=== PATIENT | male | born 1965 | race Caucasian/White ===

== ENCOUNTER 2017-02-08 12:28 | Emergency (ER) | payer MEDICAID ==
[~2017-02-08] VITALS: Ht 160 cm; Wt 49.9 kg
[~2017-02-08 12:28] MED LIST: Acetaminophen/Hydrocodone Bi PO; COLACE100 M1 PO
[2017-02-08 12:30] VITALS: BP 117/74
--- NOTE | 2017-02-08 14:09 | NUR ---
PATIENT PRESENTS TO ED FOR PICC LINE REMOVAL . PT STATES HE HAD THE PICC LINE INSERTED 6 WEEKS AGO FOR ABX TX. DENIES N/V/D; SKIN IS PINK/WARM/DRY; AAOX4 WITH EVEN AND STEADY GAIT; LUNGS CLEAR BL; HR EVEN AND REGULAR; PT DENIES ANY FEVER, CP, SOB, OR COUGH AT THIS TIME; PATIENT STATES PAIN OF 0/10 AT THIS TIME; VSS; PATIENT POSITIONED FOR COMFORT; HOB ELEVATED; BEDRAILS UP X2; BED DOWN. ER MD MADE AWARE OF PT STATUS.
--- NOTE | 2017-02-08 15:00 | NUR ---
Patient being evaluated by physician at bedside.
[2017-02-08 15:20] VITALS: BP 110/74
--- NOTE | 2017-02-08 15:20 | NUR ---
Patient discharged with v/s stable. Written and verbal after care instructions given and explained. Patient verbalized understanding. Wheel Chair Assisted by caregiver. All questions addressed prior to discharge. Advised to follow up with PMD.
== END 2017-02-08 15:20 | disposition home or self-care (01) ==
LOC: MED 12:28
DX: Z46.6 Encounter for fitting and adjustment of urinary device (principal); Z45.2 Encounter for adjustment and management of vascular access device; Z85.46 Personal history of malignant neoplasm of prostate; Z98.890 Other specified postprocedural states

== ENCOUNTER 2017-08-30 12:49 | Emergency (ER) | payer MEDICAID ==
[~2017-08-30] VITALS: Ht 162.6 cm; Wt 56.2 kg
[~2017-08-30 12:49] MED LIST changes: -COLACE100 M1 PO; +DOCU-299 PO
[2017-08-30 13:27] VITALS: BP 152/84
--- NOTE | 2017-08-30 14:18 | NUR ---
Patient wheelchair assisted to bed 7.
--- NOTE | 2017-08-30 14:29 | NUR ---
PATIENT BIB DAUGHTER WITH C/O LT LOWER ABDOMINAL PAIN X 2 DAYS; NO N/V/D;HX OF PROSTATE CA SURGERY 07/2016, BACK SURGERY FOR CA 10/2016.PT HAD A CHEMO LAST MONTH;DENIES N/V/D; SKIN IS PINK/WARM/DRY; AAOX4 WITH EVEN AND STEADY GAIT; LUNGS CLEAR BL; HR EVEN AND REGULAR; PT DENIES ANY FEVER, CP, SOB, OR COUGH AT THIS TIME; PATIENT STATES PAIN OF 7/10 AT THIS TIME;PATIENT POSITIONED FOR COMFORT; HOB ELEVATED; BEDRAILS UP X2; BED DOWN. ALL MONITORS IN PLACED;ER MD MADE AWARE OF PT STATUS.
[2017-08-30] MEDS ORDERED: NACL 0.9% 500 ML IV ONE (15:10)
[2017-08-30] MEDS ORDERED: HYDROmorphone 1 MG/ML AMP IVP ONE (15:10)
[2017-08-30 15:19] LABS: BASOPHILS # (AUTO) 0.1 K/uL (0.00-0.22); BASOPHILS % (AUTO) 0.9 % (0.0-2.0); EOSINOPHILS # (AUTO) 0.1 K/uL (0-0.4); EOSINOPHILS % (AUTO) 1.3 % (0.0-4.0); HEMATOCRIT 25.7 % (36-52); HEMOGLOBIN 8.3 g/dL (12.0-18.0); LYMPHOCYTES % (AUTO) 25.5 % (20.5-51.1); MEAN CORPUSCULAR HEMOGLOBIN 25 pg (27-31); MEAN CORPUSCULAR HGB CONC 33 g/dL (33-37); MEAN CORPUSCULAR VOLUME 76 fL (80-94); MONOCYTES # (AUTO) 0.5 K/uL (0.8-1.0); NEUTROPHILS # (AUTO) 5.1 K/uL (1.8-7.7); NEUTROPHILS % (AUTO) 65.3 % (42.2-75.2); PLATELET COUNT (AUTO) 493 K/uL (140-450); RED BLOOD CELL COUNT(AUTO) 3.37 MIL/uL (4.20-6.10); RED CELL DISTRIBUTION WIDTH 18.3 % (11.6-13.7); WHITE BLOOD COUNT (AUTO) 7.8 K/uL (4.8-10.8)
[2017-08-30 15:32] LABS: ANION GAP 10.1 (8-16); CARBON DIOXIDE 28.8 mmol/L (21-32); CREATININE 0.7 mg/dL (0.7-1.3); POTASSIUM 3.9 mmol/L (3.5-5.1)
[2017-08-30 15:38] LABS: ALBUMIN 2.5 g/dL (3.4-5.0); TOTAL BILIRUBIN 0.4 mg/dL (0.0-1.0)
--- NOTE | 2017-08-30 15:53 | NUR ---
WENT TO CT SCAN ACCOMPANIED BY TECH.
--- NOTE | 2017-08-30 16:05 | NUR ---
BACK FROM CT SCAN ACCOMPANIED BY SARAH.
--- NOTE | 2017-08-30 16:54 | NUR ---
PT RESTING ON BED;NO ACUTE DISTRESS NOTED;WILL CONTINUE TO MONITOR PT.
--- NOTE | 2017-08-30 17:19 | NUR ---
Patient discharged with v/s stable. Written and verbal after care instructions given and explained. Patient alert, oriented and verbalized understanding of instructions. Wheel Chair Assisted with steady gait. All questions addressed prior to discharge. ID band removed. Patient advised to follow up with PMD. Rx of COLACE,BISACODYL AND NORCO given. Patient educated on indication of medication including possible reaction and side effects. Opportunity to ask questions provided and answered.
[2017-08-30 17:20] VITALS: BP 156/84
== END 2017-08-30 17:19 | disposition home or self-care (01) ==
LOC: MED 12:49
DX: K59.00 Constipation, unspecified (principal); C61 Malignant neoplasm of prostate; C79.51 Secondary malignant neoplasm of bone
CPT/HCPCS: 36415; 74176; 80053; 83690; 85025; 96361; 96374; 99285; J1170; J7030

== ENCOUNTER 2018-06-23 11:52 | Emergency (ER) | payer MEDICAID ==
[~2018-06-23] VITALS: Ht 157.5 cm; Wt 51.3 kg
[2018-06-23 12:20] VITALS: BP 136/46
[2018-06-23 14:53] LABS: APPEARANCE,URINE CLEAR (CLEAR); BILIRUBIN,URINE NEGATIVE (NEGATIVE); BLOOD, URINE 1+ (NEGATIVE); LEUKOCYTE ESTERASE ,URINE NEGATIVE (NEGATIVE); NITRITE, URINE NEGATIVE (NEGATIVE); PH,URINE 5.5 (5.0-9.0); UGLUCOSE NEGATIVE (NEGATIVE)
[2018-06-23 15:19] LABS: COLOR,URINE STRAW (YELLOW)
[2018-06-23 15:20] LABS: RBC,URINE 0-5 (RARE) /HPF (0-5); WBC,URINE NONE SEEN /HPF (0-5)
[2018-06-23 16:17] VITALS: BP 133/75
== END 2018-06-23 16:24 | disposition home or self-care (01) ==
LOC: MED 11:52
DX: C61 Malignant neoplasm of prostate (principal); R33.8 Other retention of urine
CPT/HCPCS: 51702; 81001; 82948; 99284

== ENCOUNTER 2019-01-21 09:03 | Emergency (ER) | payer MEDICAID ==
[~2019-01-21] VITALS: Ht 160 cm; Wt 51.3 kg
[2019-01-21 09:14] VITALS: BP 118/74
--- NOTE | 2019-01-21 09:21 | NUR ---
Patient transferred to bed 9 via wheelchair by nurse. RN evaluating patient at bedside.
--- NOTE | 2019-01-21 09:28 | NUR ---
C/O ADB PAIN X 1 DAY 06/06 ACHING. PT HAS INDWELLING TAVAREZ CATHETER AND HAS NOT HAD URINE SINCE YESTERDAY. ABDOMEN IS FIRM, TENDER TO TOUCH. DENIES FEVER, N/V/D; SKIN IS PINK/WARM/DRY; AAOX4, VSS; PATIENT POSITIONED FOR COMFORT; HOB ELEVATED; BEDRAILS UP X1; BED DOWN. ER MD MADE AWARE OF PT STATUS.
--- NOTE | 2019-01-21 10:10 | NUR ---
PT STATES PAIN IS MILD AT THIS TIME.
[2019-01-21 11:14] LABS: APPEARANCE,URINE SL CLOUDY (CLEAR); BILIRUBIN,URINE NEGATIVE (NEGATIVE); BLOOD, URINE 3+ (NEGATIVE); COLOR,URINE YELLOW (YELLOW); LEUKOCYTE ESTERASE ,URINE 3+ (NEGATIVE); NITRITE, URINE POSITIVE (NEGATIVE); UGLUCOSE NEGATIVE (NEGATIVE)
[2019-01-21 11:21] LABS: RBC,URINE 11-20 (MOD) /HPF (0-5); WBC,URINE 20-60 /HPF (0-5)
[2019-01-21] MEDS ORDERED: cefTRIAXone 1,000 MG in LIDOCAINE MPF 1% - 5 mL VIAL 2.1 ML IM ONE (11:35)
--- NOTE | 2019-01-21 11:36 | NUR ---
Dr. Beth re-evaluating patient at bedside.
--- NOTE | 2019-01-21 11:36 | NUR ---
ERMD AT BEDSIDE
--- NOTE | 2019-01-21 12:25 | NUR ---
LEG BAG PROVIDED PER ORDER.
[2019-01-21 12:29] VITALS: BP 120/78
--- NOTE | 2019-01-21 12:29 | NUR ---
Patient discharged with v/s stable. Written and verbal after care instructions given and explained. Patient alert, oriented and verbalized understanding of instructions. Wheel Chair Assisted with by caregiver. All questions addressed prior to discharge. ID band removed. Patient advised to follow up with PMD. Rx of BACTRIM given. Patient educated on indication of medication including possible reaction and side effects. Opportunity to ask questions provided and answered.
== END 2019-01-21 09:14 | disposition home or self-care (01) ==
LOC: MED 09:03
DX: N39.0 Urinary tract infection, site not specified (principal); R33.9 Retention of urine, unspecified; Z85.46 Personal history of malignant neoplasm of prostate; Z79.891 Long term (current) use of opiate analgesic; Z79.899 Other long term (current) drug therapy
CPT/HCPCS: 51702; 81001; 87086; 96372; 99284; J0696; J2001; 87186

== ENCOUNTER 2019-03-10 11:53 | Emergency (ER) | payer MEDICAID ==
[~2019-03-10] VITALS: Ht 160 cm; Wt 51.3 kg
[2019-03-10 12:02] VITALS: BP 121/79
--- NOTE | 2019-03-10 12:20 | NUR ---
C/O DECREASED DRAINAGE FROM URINARY CATHETER NOTICED THIS MORNING. DENIES N/V/D/FEVER/PAIN. URINE FROM CATHETER IS YELLOW AND CLOUDY, APPROX 50ML.
--- NOTE | 2019-03-10 12:41 | NUR ---
urine collected and sent to lab
--- NOTE | 2019-03-10 12:57 | NUR ---
PT BACK FROM CT VIA BED WITH TECH
[2019-03-10 12:58] LABS: BASOPHILS % (AUTO) 0.4 % (0.0-2.0); EOSINOPHILS % (AUTO) 0.3 % (0.0-4.0); HEMATOCRIT 30.4 % (36-52); HEMOGLOBIN 10.1 g/dL (12.0-18.0); LYMPHOCYTES # (AUTO) 1.1 K/uL (2.0-11.5); MEAN CORPUSCULAR HEMOGLOBIN 26 pg (27-31); MEAN CORPUSCULAR HGB CONC 33 g/dL (33-37); MEAN CORPUSCULAR VOLUME 77.4 fL (80-94); MONOCYTES # (AUTO) 0.5 K/uL (0.8-1.0); MONOCYTES % (AUTO) 6.2 % (1.7-9.3); NEUTROPHILS % (AUTO) 80.1 % (42.2-75.2); PLATELET COUNT (AUTO) 503 K/uL (140-450); RED BLOOD CELL COUNT(AUTO) 3.93 MIL/uL (4.20-6.10); RED CELL DISTRIBUTION WIDTH 19.2 % (11.6-13.7); WHITE BLOOD COUNT (AUTO) 8.7 K/uL (4.8-10.8)
[2019-03-10 13:09] LABS: ANION GAP 16.1 (8-16); POTASSIUM 4.1 mmol/L (3.5-5.1)
[2019-03-10 13:13] LABS: ALBUMIN 2.4 g/dL (3.4-5.0); TOTAL BILIRUBIN 0.8 mg/dL (0.0-1.0)
[2019-03-10 13:20] LABS: APPEARANCE,URINE HAZY (CLEAR); BILIRUBIN,URINE NEGATIVE (NEGATIVE); BLOOD, URINE 1+ (NEGATIVE); COLOR,URINE YELLOW (YELLOW); LEUKOCYTE ESTERASE ,URINE 3+ (NEGATIVE); NITRITE, URINE NEGATIVE (NEGATIVE); UGLUCOSE NEGATIVE (NEGATIVE)
[2019-03-10] MEDS ORDERED: NACL 0.9% 1,000 ML IV ONE (13:25)
--- NOTE | 2019-03-10 13:26 | NUR ---
Rodrigo middleton in EDM - 03/10/19 at 1327 by MED1 pt is refusing all care at this time, states he came to the ER only to refil his prescription medications. Dr. Beth aware and will go to see the pt.
[2019-03-10 13:51] LABS: RBC,URINE 0-5 /HPF (0-5)
--- NOTE | 2019-03-10 14:00 | NUR ---
# 14 FR Song catheter with 10 ml utilizing sterile technique. Immediate return of 50 ML ml YELLOW, CLOUDY urine noted. Bedside drainage bag placed below level of bladder. Pt tolerated procedure WELL.
--- NOTE | 2019-03-10 14:50 | NUR ---
Patient appears to be resting in bed. Vital Signs within normal limits. Respirations even and unlabored.
[2019-03-10 15:20] VITALS: BP 119/68
--- NOTE | 2019-03-10 15:20 | NUR ---
Patient discharged with v/s stable. Written and verbal after care instructions given and explained. Patient verbalized understanding. Wheel Chair Assisted by daughter. All questions addressed prior to discharge. Advised to follow up with PMD. pt d/c with 14f rivera catheter. IV removed and catheter intact.
== END 2019-03-10 15:20 | disposition home or self-care (01) ==
LOC: MED 11:53
DX: E86.0 Dehydration (principal); R10.30 Lower abdominal pain, unspecified; R30.0 Dysuria; Z85.46 Personal history of malignant neoplasm of prostate; Z79.899 Other long term (current) drug therapy
CPT/HCPCS: 36415; 51702; 74176; 80053; 81001; 85025; 87086; 96360; 99284; J7030

== ENCOUNTER 2019-04-15 20:32 | Emergency (ER) | payer MEDICAID ==
[~2019-04-15] VITALS: Ht 160 cm; Wt 51.3 kg
[2019-04-15 20:44] VITALS: BP 104/72
--- NOTE | 2019-04-15 20:46 | NUR ---
TO LOBBY A/W BED VIA W/C
--- NOTE | 2019-04-15 21:27 | NUR ---
PT TAKEN TO BED 3
--- NOTE | 2019-04-15 21:45 | NUR ---
PT TO ED WITH SON VIA W/C FOR C/O "CLOGGED CATHETER" PER PT. INDWELLING URINARY CATH WITH LEG BAG IN PLACE UPON ARRIVAL DUE TO URINARY INCONTINENCE D/T PROSTATE CA. TAVAREZ APPEARS UNCLEAN WITH FOUL ODOR AND NO DRAINAGE. OBVIOUS BLADDER DISTENTION NOTED. PT IN BED, PENDING MD ESCALERA.
--- NOTE | 2019-04-15 21:59 | NUR ---
Dr. Sigala examining patient.
--- NOTE | 2019-04-15 22:15 | NUR ---
# 14 FR Song catheter with 10 ml utilizing sterile technique. Immediate return of 1000 ml YELLOW urine noted. Bedside drainage bag placed below level of bladder. Urine sample collected and sent to lab. Pt tolerated procedure WELL.
--- NOTE | 2019-04-15 23:08 | NUR ---
PT REPORTING RELIEF OF PAIN POST CATHETER INSERTION. BLADDER DISTENTION SIGNIFICANTLY DECREASED.
[2019-04-15 23:32] VITALS: BP 106/73
--- NOTE | 2019-04-15 23:32 | NUR ---
Patient discharged with v/s stable. Written and verbal after care instructions given and explained. Patient alert, oriented and verbalized understanding of instructions. Wheel Chair Assisted with by caregiver. All questions addressed prior to discharge. ID band removed. Patient advised to follow up with PMD. Rx of CIPRO given. Patient educated on indication of medication including possible reaction and side effects. Opportunity to ask questions provided and answered.
== END 2019-04-15 23:32 | disposition home or self-care (01) ==
LOC: MED 20:32
DX: T83.098A Other mechanical complication of other urinary catheter, initial encounter (principal); Z85.46 Personal history of malignant neoplasm of prostate; Z79.899 Other long term (current) drug therapy; Y84.9 Medical procedure, unspecified as the cause of abnormal reaction of the patient, or of later complication, without mention of misadventure at the time of the procedure
CPT/HCPCS: 51702; 99284; C1758

== ENCOUNTER 2019-04-30 00:43 | Emergency (ER) | payer MEDICAID ==
[~2019-04-30] VITALS: Ht 160 cm; Wt 45.4 kg
[~2019-04-30 00:43] MED LIST changes: -DOCU-299 PO
[2019-04-30 00:56] VITALS: BP 130/90
--- NOTE | 2019-04-30 00:56 | NUR ---
PT TAKEN TO BED 4
--- NOTE | 2019-04-30 01:00 | NUR ---
53 y/o m presents w/c/o "clogged urinary cather." pt feels like his urine is being reatained. no other complaints. rr even/unlabored. gcs 15.
--- NOTE | 2019-04-30 01:10 | NUR ---
per dr. cormier new rivera catheter to be placed
--- NOTE | 2019-04-30 01:16 | NUR ---
16 fr rivera catheter placed using sterile technique. pt tolerated well. 300ml of cloudy urine noted.
[2019-04-30 01:30] VITALS: BP 125/89
--- NOTE | 2019-04-30 01:44 | NUR ---
Patient discharged by dr. cormier with v/s stable. Written and verbal after care instructions given and explained. Patient verbalized understanding. Wheel Chair Assisted with to car. All questions addressed prior to discharge. Advised to follow up with PMD.
== END 2019-04-30 01:44 | disposition home or self-care (01) ==
LOC: MED 00:43
DX: T83.018A Breakdown (mechanical) of other urinary catheter, initial encounter (principal); Z85.46 Personal history of malignant neoplasm of prostate; Z79.899 Other long term (current) drug therapy; Y84.6 Urinary catheterization as the cause of abnormal reaction of the patient, or of later complication, without mention of misadventure at the time of the procedure
CPT/HCPCS: 51702; 99284; C1758

== ENCOUNTER 2019-07-29 12:49 | Inpatient (IN) | payer MEDICAID ==
[~2019-07-29] VITALS: Ht 160 cm; Wt 51.7 kg
[2019-07-29 13:00] VITALS: BP 109/63
--- NOTE | 2019-07-29 13:20 | NUR ---
PER ER NAM SUÁREZ TO REMOVE TAVAREZ CATHETER, AND COLLECT URINE SAMPLE WHEN INSERTING TAVAREZ REPLACEMENT.
--- NOTE | 2019-07-29 13:20 | NUR ---
54/M BIB DAUGHTER, WITH INITIAL C/O "BALL" ON LOWER BACK, X2 WEEKS. UPON INSPECTION, LARGE STAGE 4 SACRAL ULCER NOTED. ALSO C/O DARK URINE THAT HAS SINCE RESOLVED, MILDLY CLOUDY IRVIN URINE NOTED, TAVAREZ CATH WITH LEG BAG IN PLACE BUT BALLOON NOT INFLATED, TAVAREZ CATH REMOVED. PT DENIES FEVER, N/V/D, CONSTIPATION OR DYSURIA. PT AWAKE AND ALERT, WHEELCHAIR-BOUND, SKIN CACHETIC, NORMAL COLOR, WARM AND DRY, RR EVEN AND UNLABORED. HX PROSTATE CA WITH BONE METASTASIS RX CHEMO (HAVEN'T TAKEN IN 2 WEEKS AGO)
[2019-07-29] MEDS ORDERED: NACL 0.9% 500 ML IV SCH (13:52)
--- NOTE | 2019-07-29 14:10 | NUR ---
# 14 FR Urinary catheter inserted utilizing sterile technique. Immediate return of 100 ml CLEAR YELLOW urine noted. Urine sample collected and sent to lab. Pt tolerated procedure WELL.
[2019-07-29 14:20] LABS: BASOPHILS % (AUTO) 0.4 % (0.0-2.0); EOSINOPHILS % (AUTO) 0.3 % (0.0-4.0); LYMPHOCYTES # (AUTO) 1.8 K/uL (2.0-11.5); LYMPHOCYTES % (AUTO) 15.3 % (20.5-51.1); MEAN CORPUSCULAR HEMOGLOBIN 24 pg (27-31); MEAN CORPUSCULAR HGB CONC 33 g/dL (33-37); MEAN CORPUSCULAR VOLUME 72.7 fL (80-94); MONOCYTES # (AUTO) 0.7 K/uL (0.8-1.0); MONOCYTES % (AUTO) 5.6 % (1.7-9.3); NEUTROPHILS # (AUTO) 9.1 K/uL (1.8-7.7); NEUTROPHILS % (AUTO) 78.4 % (42.2-75.2); PLATELET COUNT (AUTO) 602 K/uL (140-450); RED CELL DISTRIBUTION WIDTH 17.7 % (11.6-13.7); WHITE BLOOD COUNT (AUTO) 11.6 K/uL (4.8-10.8)
--- NOTE | 2019-07-29 14:22 | NUR ---
Patient noted to have existing wounds upon arrival to ER. Photos taken of wound and placed in chart. Wound covered with dressing. Physician informed.
[2019-07-29 14:26] LABS: HEMATOCRIT 18.2 % (36-52); HEMOGLOBIN 5.9 g/dL (12.0-18.0)
[2019-07-29 14:32] LABS: PROTHROMBIN TIME 10.2 secs (10.8-13.4)
[2019-07-29 14:36] LABS: ALBUMIN 1.6 g/dL (3.4-5.0); ANION GAP 14.6 (8-16); CARBON DIOXIDE 20.2 mmol/L (21-32); CREATININE 1.2 mg/dL (0.7-1.3); TOTAL BILIRUBIN 0.8 mg/dL (0.0-1.0)
[2019-07-29 14:39] LABS: POTASSIUM 2.8 mmol/L (3.5-5.1)
[2019-07-29 14:58] LABS: APPEARANCE,URINE HAZY (CLEAR); BILIRUBIN,URINE NEGATIVE (NEGATIVE); BLOOD, URINE 3+ (NEGATIVE); COLOR,URINE YELLOW (YELLOW); LEUKOCYTE ESTERASE ,URINE 1+ (NEGATIVE); NITRITE, URINE NEGATIVE (NEGATIVE); UGLUCOSE NEGATIVE (NEGATIVE)
[2019-07-29] MEDS ORDERED: POTASSIUM CHLORIDE 10 MEQ TABER PO ONE (15:00)
--- NOTE | 2019-07-29 15:06 | NUR ---
RADIOLOGY AT BEDSIDE
[2019-07-29] MEDS ORDERED: PIPERACILLIN/TAZOBACTAM 3.375 GM in DEXTROSE 5% 50 ML IV ONE (15:10)
[2019-07-29] MEDS ORDERED: PIPERACILLIN/TAZOBACTAM 3.375 GM VIAL IV ONE (15:14)
[2019-07-29 15:22] LABS: RBC,URINE 20-50 /HPF (0-5); URINE AMORPHOUS URATE 2+ /HPF (None Seen)
[2019-07-29] MEDS ORDERED: LEVOFLOXACIN 500 MG/D5W PREMIX 100 ML IV ONE (15:30)
[2019-07-29] MEDS ORDERED: NACL 0.9% 1,000 ML IV SCH (16:01)
[2019-07-29] MEDS ORDERED: ACETAMINOPHEN 325 MG TAB PO PRN (16:05)
[2019-07-29] MEDS ORDERED: ONDANSETRON 4 MG/2 ML VIAL IVP PRN (16:05)
[2019-07-29] MEDS ORDERED: [UNRECOGNIZED DRUG - CODE] PO ×2 (16:42→16:45)
--- NOTE | 2019-07-29 17:00 | NUR ---
PATIENT ARRIVED FROM ER. REPORT RECEIVED. PATIENT VS STABLE, ALERT ORIENTED X 4. DAUGHTER AT BEDSIDE. PATIENT ORIENTED TO ROOM AND UNIT. CALL LIGHT WITHIN REACH. MRSA SWAB DONE. RIGHT AC IV INTACT AND PATENT. TAVAREZ CATHETER 16FR PLACED ORDERED. TOLERATED WELL. PRESSURE ULCER TO SACRAL AREA NOTED. DRESSING INTACT. PHOTOS TAKEN IN ER.
--- NOTE | 2019-07-29 17:08 | NUR ---
Patient will be admitted to care of [facility]. Admited to TELE. Will go to room 105B. Belongings list completed. Report to SCOTT MORRISON.
[2019-07-29 17:27] LABS: BARBITURATE, URINE NEG. ng/ml (NEG <=200); BENZODIAZEPINE, URINE NEG. ng/mL (NEG <=200); CANNABINOID, URINE NEG. ng/mL (NEG <=50); COCAINE, URINE NEG. ng/mL (NEG <=300); OPIATE, URINE NEG. ng/mL (NEG <=2000); PHENCYCLIDINE SCREEN,URINE NEG. ng/mL (NEG <=25)
[2019-07-29 17:36] LABS: FREE T4 (FREE THYROXINE) 1.19 ng/dL (0.76-1.46); MAGNESIUM 1.8 mg/dL (1.8-2.4); PHOSPHORUS 2.9 mg/dL (2.5-4.9); THYROID STIMULATING HORMONE 2.35 uIU/mL (0.34-3.74)
[2019-07-29] MEDS ORDERED: POTASSIUM CHLORIDE 40 MEQ, LIDOCAINE MPF 1% 25 MG in NACL 0.9% 250 ML IV ONE (18:00)
[2019-07-29 18:20] VITALS: BP 97/61
--- NOTE | 2019-07-29 18:30 | NUR ---
PT SITTING UP EATING DINNER, TINY WELL.
[2019-07-29] MEDS ORDERED: KCL 20 MEQ/WATER INJ PREMIX 200 ML IV ONE (18:39)
[2019-07-29] MEDS: NACL 0.9% 1,000 ML IV SCH (18:43)
[2019-07-29] MEDS: HYDROcodone/APAP 7.5/325 MG 1 TAB PO PRN (18:43)
--- NOTE | 2019-07-29 19:25 | NUR ---
RECEIVED BEDSIDE REPORT FROM DAY SHIFT NURSE. PATIENT IS AWAKE, ALERT,AND COOPERATIVE. RESPIRATION EVEN UNLABORED ON ROOM AIR. NO DISTRESS NOTED. SKIN IS WARM AND DRY. SACRAL ULCER NOTED DRESSING DRY AND INTACT. DENIES PAIN. TAVAREZ CATHETER DRAINING YELLOW URINE. PLAN OF CARE WAS DISCUSSED. ALL SAFETY MEASURES IN PLACE. BED IS AT LOW POSITION. CALL LIGHT WITHIN REACH. WILL CONTINUE TO MONITOR.
--- NOTE | 2019-07-29 19:28 | NUR ---
REPORT GIVEN TO TRAINING DEVELOPMENT SPECIALIST NURSE, PT IN STABLE CONDITION.
[2019-07-29 20:00] VITALS: BP 92/59
--- NOTE | 2019-07-29 20:00 | NUR ---
INITIAL ASSESSMENT DONE. VITALS WERE TAKEN. PATIENT IN STABLE CONDITION. WILL CONTINUE TO MONITOR.
[2019-07-29 20:16] LABS: BASOPHILS % (AUTO) 0.1 % (0.0-2.0); EOSINOPHILS # (AUTO) 0.1 K/uL (0-0.4); EOSINOPHILS % (AUTO) 0.4 % (0.0-4.0); LYMPHOCYTES # (AUTO) 0.7 K/uL (2.0-11.5); LYMPHOCYTES % (AUTO) 5.9 % (20.5-51.1); MEAN CORPUSCULAR HEMOGLOBIN 24 pg (27-31); MEAN CORPUSCULAR HGB CONC 33 g/dL (33-37); MEAN CORPUSCULAR VOLUME 72.6 fL (80-94); MONOCYTES % (AUTO) 7.5 % (1.7-9.3); NEUTROPHILS # (AUTO) 10.9 K/uL (1.8-7.7); NEUTROPHILS % (AUTO) 86.1 % (42.2-75.2); PLATELET COUNT (AUTO) 515 K/uL (140-450); RED BLOOD CELL COUNT(AUTO) 2.16 MIL/uL (4.20-6.10); WHITE BLOOD COUNT (AUTO) 12.7 K/uL (4.8-10.8)
[2019-07-29 20:26] LABS: HEMATOCRIT 15.7 % (36-52); HEMOGLOBIN 5.1 g/dL (12.0-18.0)
[2019-07-29 20:39] LABS: ANION GAP 15.4 (8-16); CARBON DIOXIDE 19.8 mmol/L (21-32); CREATININE 1.1 mg/dL (0.7-1.3); POTASSIUM 4.2 mmol/L (3.5-5.1)
[2019-07-29] MEDS: DOCUSATE SODIUM 100 MG GELCAP PO SCH (21:11)
[2019-07-29] MEDS: metroNIDAZOLE 500 MG/NS PREMIX 100 ML IV SCH (21:11)
--- NOTE | 2019-07-29 21:45 | NUR ---
STARTED A NEW IV LINE ON THE LEFT WRIST 20G TOLERATING IT WELL. WILL CONTINUE TO MONITOR.
--- NOTE | 2019-07-29 21:46 | NUR ---
ALL SCHEDULED MEDS WERE GIVEN PER ORDER. WILL CONTINUE TO MONITOR.
--- NOTE | 2019-07-29 23:10 | NUR ---
BLOOD TRANSFUSION STARTED. WILL CONTINUE TO MONITOR. PATIENT
--- NOTE | 2019-07-29 23:30 | NUR ---
URINE 24HOUR COLLECTION STARTED
[2019-07-30] VITALS: BP 108/66
--- NOTE | 2019-07-30 | NUR ---
VITALS WERE TAKEN. PATIENT IN STABLE CONDITION. NO DISTRESS NOTED. BLOOD STILL INFUSING. WILL CONTINUE TO MONITOR.
--- NOTE | 2019-07-30 01:45 | NUR ---
FIRST UNIT OF BLOOD DONE. PATIENT TOLERATED IT WELL. NO ASE NOTED. WILL INFUSED 2ND UNIT OF BLOOD AFTER PRE VITALS. WILL CONTINUE TO MONITOR.
[2019-07-30] MEDS: NACL 0.9% 1,000 ML IV SCH ×3 (03:45→23:39)
[2019-07-30 04:00] VITALS: BP 106/63
--- NOTE | 2019-07-30 04:00 | NUR ---
VITALS WERE TAKEN. PATIENT IN STABLE CONDITION. BLOOD STILL INFUSING. WILL CONTINUE TO MONITOR.
--- NOTE | 2019-07-30 05:00 | NUR ---
BLOOD TRANSFUSION FINISHED. NO ASE NOTED. WILL CONTINUE TO MONITOR.
[2019-07-30] MEDS: metroNIDAZOLE 500 MG/NS PREMIX 100 ML IV SCH ×3 (05:01→21:07)
--- NOTE | 2019-07-30 07:11 | NUR ---
ENDORSED PATIENT TO DAY SHIFT NURSE. PATIENT IN STABLE CONDITION.
--- NOTE | 2019-07-30 07:15 | NUR ---
RECEIVED PT FROM FEATHER CUTTING MACHINE FEEDER NURSEMARIA M, PT IS AWAKE AND SEATED ON THE BED WITH SIDE RAILS UP AND CALL LIGHT WITHIN REACH, IV LINES ON THE RT AC G. 20 WITH IVF NS INFUSING AT 100ML/HR, AND LEFT WRIST G. 22 ON SALINE LOCK, PT ON ROOM AIR, NO SIGN OF DISTRESS NOTED. WILL MONITOR PT.
[2019-07-30 08:01] LABS: BASOPHILS % (AUTO) 0.3 % (0.0-2.0); EOSINOPHILS % (AUTO) 0.3 % (0.0-4.0); HEMATOCRIT 25.8 % (36-52); HEMOGLOBIN 8.4 g/dL (12.0-18.0); LYMPHOCYTES # (AUTO) 0.7 K/uL (2.0-11.5); MEAN CORPUSCULAR HEMOGLOBIN 24 pg (27-31); MEAN CORPUSCULAR HGB CONC 32 g/dL (33-37); MEAN CORPUSCULAR VOLUME 73.6 fL (80-94); MONOCYTES # (AUTO) 0.4 K/uL (0.8-1.0); MONOCYTES % (AUTO) 2.6 % (1.7-9.3); NEUTROPHILS # (AUTO) 13.4 K/uL (1.8-7.7); NEUTROPHILS % (AUTO) 91.8 % (42.2-75.2); PLATELET COUNT (AUTO) 524 K/uL (140-450); RED CELL DISTRIBUTION WIDTH 18.7 % (11.6-13.7); WHITE BLOOD COUNT (AUTO) 14.6 K/uL (4.8-10.8)
[2019-07-30 08:03] LABS: ANION GAP 17.3 (8-16); POTASSIUM 4.3 mmol/L (3.5-5.1)
[2019-07-30 08:05] VITALS: BP 108/70
[2019-07-30 08:07] LABS: CHOL/HDL RATIO 11.4 (1-4.5); MAGNESIUM 1.5 mg/dL (1.8-2.4); PHOSPHORUS 2.4 mg/dL (2.5-4.9)
--- NOTE | 2019-07-30 08:12 | NUR ---
PATIENT HAS BEEN SCREENED AND CATEGORIZED HIGH NUTRITION RISK. PATIENT WILL BE SEEN WITHIN 1-2 DAYS OF ADMISSION. 07/30/19-07/31/[address]
[2019-07-30] MEDS: DOCUSATE SODIUM 100 MG GELCAP PO SCH ×2 (08:59→21:07)
[2019-07-30] MEDS: FAMOTIDINE 20 MG TAB PO SCH (08:59)
--- NOTE | 2019-07-30 08:59 | NUR ---
PT IS AWAKE AND ORAL MEDICATIONS WERE GIVEN AND TOLERATED IT. WILL MONITOR PT.
[2019-07-30] MEDS ORDERED: ENZALUTAMIDE 40 MG PO SCH (09:00)
--- NOTE | 2019-07-30 10:30 | NUR ---
DR. OLSON CAME TO THE PT'S ROOM AND ASSESSED THE PT'S SACRAL PRESSURE WOUND, AND WAS REINFORCED WITH DRESSING.
[2019-07-30] MEDS: HYDROcodone/APAP 7.5/325 MG 1 TAB PO PRN ×3 (11:33→23:43)
--- NOTE | 2019-07-30 11:33 | NUR ---
PT IS AWAKE AND C/O PAIN RATE OF 6/10, ORAL PAIN MEDICATION WAS GIVEN And TOLERATED IT. WILL RE-ASSESS PAIN AND MONITOR PT
[2019-07-30 12:00] VITALS: BP 108/72
--- NOTE | 2019-07-30 12:40 | NUR ---
PT WAS GIVEN IVPB FLAGYL NOW, WILL MONITOR PT.
--- NOTE | 2019-07-30 13:24 | NUR ---
07/30/19 RD INITIAL ASSESSMENT COMPLETED PLEASE REFER TO NUTRITION ASSESSMENT UNDER CARE ACTIVITY FOR ESTIMATED NUTRITIONAL NEEDS. 1. CONTINUE REGULAR DIET TOLERATED 2. RECOMMEND ENSURE TID 3. RECOMMEND 500MG VITAMIC C BID 4. RECOMMEND MVI QD 5. RD TO FOLLOW-UP 2-3 DAYS, HIGH RISK [address]
[2019-07-30] MEDS ORDERED: ALBUTEROL SULFATE/IPRATROPIU 3 ML SOL IH PRN (16:20)
[2019-07-30] MEDS: FERROUS SULFATE 325 MG TABEC PO SCH (16:22)
--- NOTE | 2019-07-30 16:25 | NUR ---
PT IS AWAKE AND DAUGHTER ON THE BEDSIDE, ,ORAL AND IV MEDICATIONS WERE GIVEN AND TOLERATED IT. WILL MONITOR PT.
[2019-07-30] MEDS ORDERED: MAG SULF 2000 MG/WATER PREMIX 50 ML IV SCH (16:30)
[2019-07-30 16:58] LABS: BASOPHILS # (AUTO) 0.1 K/uL (0.00-0.22); BASOPHILS % (AUTO) 0.4 % (0.0-2.0); EOSINOPHILS # (AUTO) 0.1 K/uL (0-0.4); EOSINOPHILS % (AUTO) 0.5 % (0.0-4.0); HEMATOCRIT 24.9 % (36-52); HEMOGLOBIN 8.2 g/dL (12.0-18.0); LYMPHOCYTES # (AUTO) 1.1 K/uL (2.0-11.5); LYMPHOCYTES % (AUTO) 9.1 % (20.5-51.1); MEAN CORPUSCULAR HEMOGLOBIN 24 pg (27-31); MEAN CORPUSCULAR HGB CONC 33 g/dL (33-37); MEAN CORPUSCULAR VOLUME 72.6 fL (80-94); MONOCYTES # (AUTO) 0.6 K/uL (0.8-1.0); MONOCYTES % (AUTO) 4.6 % (1.7-9.3); NEUTROPHILS # (AUTO) 10.5 K/uL (1.8-7.7); NEUTROPHILS % (AUTO) 85.4 % (42.2-75.2); PLATELET COUNT (AUTO) 525 K/uL (140-450); RED BLOOD CELL COUNT(AUTO) 3.44 MIL/uL (4.20-6.10); RED CELL DISTRIBUTION WIDTH 18.4 % (11.6-13.7); WHITE BLOOD COUNT (AUTO) 12.3 K/uL (4.8-10.8)
[2019-07-30] MEDS ORDERED: SODIUM PHOS / POTASSIUM PHOS 1 PKT PDR PO SCH (17:00)
[2019-07-30] MEDS ORDERED: MULTIVITAMIN 1 TAB PO SCH (17:00)
[2019-07-30] MEDS ORDERED: SODIUM FERRIC GLUCONATE 125 MG in NACL 0.9% 100 ML IV SCH (17:00)
[2019-07-30] MEDS ORDERED: FOAM DRESSING TP SCH (17:00)
[2019-07-30 17:15] LABS: ANION GAP 15.7 (8-16); CARBON DIOXIDE 17.4 mmol/L (21-32); CREATININE 1.1 mg/dL (0.7-1.3); POTASSIUM 4.1 mmol/L (3.5-5.1)
--- NOTE | 2019-07-30 17:20 | NUR ---
PT WAS GIVEN MULTIVITAMIN NOW.
[2019-07-30 17:32] VITALS: BP 108/72
--- NOTE | 2019-07-30 18:58 | NUR ---
FERRLECIT WAS STARTED TO PT NOW.
[2019-07-30] MEDS: SODIUM FERRIC GLUCONATE 125 MG in NACL 0.9% 100 ML IV SCH (18:59)
--- NOTE | 2019-07-30 19:10 | NUR ---
ENDORSED PT TO NIGHT SIFT NURSE FOR CONTINUITY OF CARE.
--- NOTE | 2019-07-30 19:10 | NUR ---
RECEIVED BEDSIDE REPORT FROM DAY SHIFT NURSE. PATIENT IS AWAKE, ALERT, AND COOPERATIVE. RESPIRATION EVEN UNLABORED ON ROOM AIR. NO DISTRESS NOTED. SKIN IS WARM AND DRY. IV PATENT ANT INTACT. TAVAREZ CATHETER DRAINING YELLOW URINE. PLAN OF CARE WAS DISCUSSED. BED IS AT LOW POSITION. CALL LIGHT WITHIN REACH AND VERBALIZES ITS USE. WILL CONTINUE TO MONITOR.
[2019-07-30 20:00] VITALS: BP 96/58
--- NOTE | 2019-07-30 20:00 | NUR ---
INITIAL ASSESSMENT DONE. VITALS WERE TAKEN. PATIENT HAS A SACRAL PRESSURE ULCER. DRESSING DRY AND INTACT. WILL CONTINUE TO MONITOR.
[2019-07-30] MEDS: ALBUTEROL SULFATE/IPRATROPIU 3 ML SOL IH SCH (20:10)
--- NOTE | 2019-07-30 21:00 | NUR ---
ALL SCHEDULED MEDS WERE GIVEN PER ORDER. NO ASE NOTED. WILL CONTINUE TO MONITOR.
[2019-07-30] MEDS: ASCORBIC ACID 500 MG TAB PO SCH (21:07)
--- NOTE | 2019-07-30 22:34 | NUR ---
PATIENT WATCHING TV RESPIRATION EVEN UNLABORED ON ROOM AIR. NO DISTRESS NOTED. WILL CONTINUE TO MONITOR.
--- NOTE | 2019-07-30 23:46 | NUR ---
PATIENT COMPLAINED OF SACRAL AREA PAIN /. PRN PAIN MED ADMINISTERED PER ORDER. WILL CONTINUE TO MONITOR.
[2019-07-31] VITALS: BP 91/57
--- NOTE | 2019-07-31 | NUR ---
VITALS WERE TAKEN. PATIENT IN STABLE CONDITION. WILL CONTINUE TO MONITOR.
[2019-07-31] MEDS: NACL 0.9% 1,000 ML IV SCH ×2 (02:55→19:45)
--- NOTE | 2019-07-31 03:00 | NUR ---
CHECKED PATIENT. PATIENT SLEEPING RESPIRATION EVEN UNLABORED ON ROOM AIR. NO DISTRESS NOTED. WILL CONTINUE TO MONITOR.
[2019-07-31 04:00] VITALS: BP 113/70
--- NOTE | 2019-07-31 04:00 | NUR ---
VITALS WERE TAKEN. PATIENT IN STABLE CONDITION. WILL CONTINUE TO MONITOR.
[2019-07-31] MEDS: metroNIDAZOLE 500 MG/NS PREMIX 100 ML IV SCH ×3 (04:38→22:18)
[2019-07-31 07:00] LABS: BASOPHILS # (AUTO) 0.1 K/uL (0.00-0.22); BASOPHILS % (AUTO) 0.5 % (0.0-2.0); EOSINOPHILS # (AUTO) 0.1 K/uL (0-0.4); EOSINOPHILS % (AUTO) 1.6 % (0.0-4.0); HEMATOCRIT 23.5 % (36-52); HEMOGLOBIN 7.7 g/dL (12.0-18.0); LYMPHOCYTES # (AUTO) 1.1 K/uL (2.0-11.5); MEAN CORPUSCULAR HEMOGLOBIN 24 pg (27-31); MEAN CORPUSCULAR HGB CONC 33 g/dL (33-37); MEAN CORPUSCULAR VOLUME 73.7 fL (80-94); MONOCYTES # (AUTO) 0.5 K/uL (0.8-1.0); MONOCYTES % (AUTO) 5.2 % (1.7-9.3); NEUTROPHILS # (AUTO) 7.5 K/uL (1.8-7.7); NEUTROPHILS % (AUTO) 80.7 % (42.2-75.2); PLATELET COUNT (AUTO) 514 K/uL (140-450); RED BLOOD CELL COUNT(AUTO) 3.19 MIL/uL (4.20-6.10); RED CELL DISTRIBUTION WIDTH 18.5 % (11.6-13.7); WHITE BLOOD COUNT (AUTO) 9.3 K/uL (4.8-10.8)
[2019-07-31 07:16] LABS: ANION GAP 13.3 (8-16); CARBON DIOXIDE 19.5 mmol/L (21-32); POTASSIUM 3.8 mmol/L (3.5-5.1)
--- NOTE | 2019-07-31 07:20 | NUR ---
ENDORSED PATIENT TO DAY SHIFT NURSE. PATIENT IN STABLE CONDITION
[2019-07-31 07:23] LABS: MAGNESIUM 1.9 mg/dL (1.8-2.4)
[2019-07-31] MEDS: ALBUTEROL SULFATE/IPRATROPIU 3 ML SOL IH SCH ×3 (07:26→20:15)
--- NOTE | 2019-07-31 07:28 | NUR ---
RECEIVED PT FORM CUTTER V GROOVE NURSE, KALINA, PT IS ASLEEP AND LYING ON THE BED WITH SIDE RAILS UP AND CALL LIGHT WITHIN REACH, IV LINE ON THE RT AC G. 20 WITH NS INFUSING AT 100ML/HR AND ON THE LEFT FA G. 22 ON SALINE LOCK, RESPIRATION IS EVEN AND NO SIGN OF DISTRESS NOTED. WILL CONTINUE TO MONITOR PT. Addendum: 07/31/19 at 0944 by Hui Corral RN ADDITION TO THE ABOVE NOT IS THAT PT HAS TAVAREZ CATHETER IN PLACE.
[2019-07-31 08:00] VITALS: BP 132/78
[2019-07-31] MEDS: ASCORBIC ACID 500 MG TAB PO SCH ×2 (09:07→21:10)
[2019-07-31] MEDS: DOCUSATE SODIUM 100 MG GELCAP PO SCH ×2 (09:07→21:10)
--- NOTE | 2019-07-31 09:07 | NUR ---
PT IS AWAKE AND [id number] ON THE BED , ORAL MEDICATIONS WERE GIVEN AND TOLERATED IT. PT EVALUATION WAS DONE TO PT WELL. WILL MONITOR PT
[2019-07-31] MEDS: FERROUS SULFATE 325 MG TABEC PO SCH ×2 (09:08→16:21)
[2019-07-31] MEDS: FAMOTIDINE 20 MG TAB PO SCH (09:08)
[2019-07-31] MEDS: LACTOBACILLUS RHAMNOSUS GG 1 EACH CAP PO SCH (09:08)
[2019-07-31] MEDS: MULTIVITAMIN 1 TAB PO SCH (09:08)
--- NOTE | 2019-07-31 10:47 | NUR ---
WOUND CARE EVALUATION NOTES: REASON FOR EVALUATION: PRESSURE ULCERS WOUND SKIN ASSESSMENT DONE ON THIS 54 Y/O MALE PATIENT ADMITTED TO [facility] WITH MULTIPLE PRESSURE ULCER. ABOVE INFORMATION WAS OBTAINED FROM THE ADMISSION H&P. SKIN WARM AND SCALY, NO EDEMA BLE, BILATERAL PEDAL PULSES PRESENT, NEEDS ASSISTANCE IN TURNING. INITIAL PLAN OF CARE DISCUSSED WITH PRIMARY RN AND PT. PT. IS PENDING FOR SURGEON FOR WOUND DEBRIDEMENT PER CHARGE NURSE. INTEGUMENTARY: -LEFT HIP PRESSURE ULCER UN-STAGEABLE, 2X2CM DEPTH UTD, WOUND BED 60% OF BROWN THIN SLOUGH TISSUE, OTHER 50% WITH PALE PINK WOUND BED, MOIST, NO ODOR.SLAVA WOUND SKIN INTACT, PALE IN COLOR. -SACRALCOCCYX PRESSURE ULCER UN-STAGEABLE, 6X5CM DEPTH UTD, UNDERMINING AROUND THE CLOCK, 1.5 CM, WITH WOUND BED 100% OF INFECTED BROWN /BLACK SLOUGH TISSUE, MODERATE AMOUNT PURULENT DRAINAGE, MILD ODOR.SLAVA WOUND SKIN INTACT, PALE IN COLOR. SLAVA WOUND SKIN ERYTHEMA, WITH AN OPEN WOUND TOWARD 11 OCLOCK, 0.5X0.8CM DEPUTD, WOUND BED 100% YELLOW SLOUGH DEPTH UTD, NMILD ODOR,SLAVA WOUND SKIN RED AND DENUDED. -XEROSIS TO BLE FROM THIGH S DOWN TO FEET, SKIN INTACT -INTERSPACES TO TOES DRY CRACKED SKIN WITH FUNGAL LIKE NAILS -BILATERAL HEELS THICK CALLUSES RECOMMENDATIONS: -PENDING SURGEON DEBRIDEMENT -CLEANSE LEFT HIP WITH WOUND CARE SOLUTION, PAT DRY, APPLY THERAHONEY GEL TO WOUND BED AND APPLY HYDRAGUARD TO SLAVA WOUND SKIN, COVER WITH COMPOSITE DRESSING QOD AND PRN IF SOILING -CLEANSE SACRALCOCCYX WOUND WITH WOUND CARE SOLUTION, PAT DRY, PACK WITH SILVER ALGINATE , APPLY HYDRAGUARD TO SLAVA WOUND SKIN ,COVER WITH COMPOSITE DRESSING QOD AND PRN IF SOILING -OFFLOAD BILATERAL HEELS BY PLACING PILLOWS UNDER CALVES AT ALL TIMES, UNLESS OTHERWISE CONTRAINDICATED -KEEP SKIN CLEAN AND DRY AT ALL TIMES. -PRESSURE REDISTRIBUTION SURFACE THERAPY. RECOMMENDATIONS DISCUSSED WITH PRIMARY RN. PLEASE CONTACT WOUND CARE NURSE FOR ANY QUESTIONS AND CHANGES IN SKIN CONDITION.
--- NOTE | 2019-07-31 11:44 | NUR ---
PT IS OFF THE UNIT NOW FOR A CT OF CHEST ABDOMEN AND PELVIS WITH CONTRAST, PT IS STABLE AT THIS TIME.
[2019-07-31 12:00] VITALS: BP 130/79
[2019-07-31 12:39] LABS: TRANSFERRIN 108 mg/dL (200-370)
[2019-07-31 12:40] LABS: FERRITIN 1567 ng/mL (30-400)
--- NOTE | 2019-07-31 13:31 | NUR ---
*S.T. note* Order for bedside swallow eval received, chart reviewed, spoke w/ both RN Hui and daughter at bedside. Pt is NPO currently, pending surgery for decubitus ulcer. Dtr denied any difficulty swallowing both prior to and during this admission. Will complete eval on 08/03/19 if pt remains in hospital. If no longer needed, please DC order. Thank you. Time [id number]
--- NOTE | 2019-07-31 13:33 | NUR ---
ADELIA IVPB WAS GIVEN TO PT NOW. WILL MONITOR PT.
[2019-07-31] MEDS: ALGINATE DRESSING TP SCH (13:41)
[2019-07-31] MEDS: THERAHONEY GEL 42.5 GM TP SCH (13:42)
[2019-07-31] MEDS: HYDRAGUARD CREAM TP SCH (13:42)
[2019-07-31 16:00] VITALS: BP 106/70
--- NOTE | 2019-07-31 16:21 | NUR ---
PT IS AWAKE AND DAUGHTER ON THE BEDSIDE, ORAL MEDICATION WAS GIVEN AND TOLERATED IT. WILL MONITOR PT.
--- NOTE | 2019-07-31 16:45 | NUR ---
PT IS OFF THE UNIT FOR A DEBRIDEMENT SURGERY OF THE SACROCOCCYX AREA.
[2019-07-31] MEDS ORDERED: PROPOFOL 200 MG/20 ML VIAL IV ONE (16:58)
[2019-07-31] MEDS ORDERED: fentaNYL 0.05 MG/ML VIAL ONE (17:04)
[2019-07-31] MEDS: BUPIVACAINE-MPF 0.25% 30 ML VIAL INJ ONE ×2 (17:23→17:25)
[2019-07-31] MEDS: PIPERACILLIN/TAZOBACTAM 3.375 GM in DEXTROSE 5% 50 ML IV SCH (18:38)
--- NOTE | 2019-07-31 18:38 | NUR ---
IV ZOSYN WAS GIVEN VIA PIGGYBACK TO PT NOW. WILL MONITOR PT.
--- NOTE | 2019-07-31 19:20 | NUR ---
ENDORSED PT TO NEWS REPORTER NURSE LINDSAY FOR CONTINUITY OF CARE.
--- NOTE | 2019-07-31 19:25 | NUR ---
RECEIVED REPORT FROM AM SHIFT RN NATALIO, FOR PT' CONTINUITY OF CARE. PT IS AAOX4, SLOVENIAN SPEAKING, FAMILY MEMBERS AT BEDSIDE, IS ON STATEMENT CLERKS MANAGER, IS ON ROOM AIR, HAS RIGHT AC 20G INFUSING WITH NS AT 100ML/HR, AND LEFT FOREARM/HAND 22 G SALINE LOCK, PT DENIES ANY PAIN AT THIS TIME. EXPLAINED TO PT AND FAMILY MEMBERS ABOUT THE COST CONSULTANT ROUTINE, THEY VERBALIZED UNDERSTANDING. WILL MONITOR PT THROUGHOUT SHIFT.
[2019-07-31 20:00] VITALS: BP 119/71
--- NOTE | 2019-07-31 20:28 | NUR ---
TOLERATED INCENTIVE SPIROMETRY THERAPY WELL WITHOUT INCIDENT ENCOURAGED PATIENT TO USE INCENTIVE SPIROMETRY EVERY 1-2 HOURS WHILE AWAKE
[2019-07-31] MEDS: SODIUM FERRIC GLUCONATE 125 MG in NACL 0.9% 100 ML IV SCH (21:10)
--- NOTE | 2019-07-31 21:10 | NUR ---
ADMINISTERED SCHEDULED PO AND IV MEDICATION ORDERED. PT TOLERATED THEM WELL. WILL CONTINUE TO MONITOR.
[2019-07-31] MEDS: HYDROcodone/APAP 7.5/325 MG 1 TAB PO PRN (22:18)
--- NOTE | 2019-07-31 22:18 | NUR ---
PT C/O PAIN 05/06. ADMINISTERED PRN PO PAIN MEDICATION ORDERED. PT TOLERATED IT WELL.
[2019-08-01] VITALS: BP 113/68
--- NOTE | 2019-08-01 00:20 | NUR ---
VS CHECKED AND CHARTED. PT DENIES ANY PAIN AT THIS TIME. WILL CONTINUE TO MONITOR PT.
[2019-08-01] MEDS: PIPERACILLIN/TAZOBACTAM 3.375 GM in DEXTROSE 5% 50 ML IV SCH ×5 (00:44→23:59)
--- NOTE | 2019-08-01 01:00 | NUR ---
WOUND DRESSING ON SACRAL/COCCYGEAL AREA CHANGED. PT TOLERATED ACTIVITY WELL.
[2019-08-01 04:00] VITALS: BP 113/74
--- NOTE | 2019-08-01 04:15 | NUR ---
VS CHECKED AND CHARTED. PT WAS SLEEPING, WOKE UP AND DENIES ANY PAIN OR DISCOMFORT AT THIS TIME. WILL CONTINUE TO MONITOR PT.
[2019-08-01] MEDS: metroNIDAZOLE 500 MG/NS PREMIX 100 ML IV SCH ×3 (05:18→20:26)
--- NOTE | 2019-08-01 05:18 | NUR ---
ADMINISTERED IV ABX ORDERED. PERFORMED TAVAREZ CATH CARE. PT TOLERATED THEM WELL. WILL CONTINUE TO MONITOR PT.
[2019-08-01] MEDS: NACL 0.9% 1,000 ML IV SCH ×2 (05:45→17:51)
--- NOTE | 2019-08-01 06:50 | NUR ---
DISCONTINUED IV ON RIGHT AC, IV WAS LEAKING. ADMINISTERED IV ABX ORDERED. CHANGED PT'S LINENS. PT DENIES ANY PAIN AT THIS TIME. WILL ENDORSE TO AM SHIFT RN FOR PT CONTINUITY OF CARE.
[2019-08-01] MEDS: ALBUTEROL SULFATE/IPRATROPIU 3 ML SOL IH SCH ×3 (07:00→19:22)
[2019-08-01 07:08] LABS: MAGNESIUM 1.7 mg/dL (1.8-2.4); PHOSPHORUS 3.1 mg/dL (2.5-4.9)
[2019-08-01 07:10] LABS: ANION GAP 14.8 (8-16); CARBON DIOXIDE 17.6 mmol/L (21-32); CREATININE 0.9 mg/dL (0.7-1.3); POTASSIUM 3.4 mmol/L (3.5-5.1)
[2019-08-01 07:19] LABS: BASOPHILS # (AUTO) 0.1 K/uL (0.00-0.22); BASOPHILS % (AUTO) 0.7 % (0.0-2.0); EOSINOPHILS # (AUTO) 0.1 K/uL (0-0.4); HEMOGLOBIN 7.7 g/dL (12.0-18.0); LYMPHOCYTES # (AUTO) 0.8 K/uL (2.0-11.5); LYMPHOCYTES % (AUTO) 10.8 % (20.5-51.1); MEAN CORPUSCULAR HEMOGLOBIN 24 pg (27-31); MEAN CORPUSCULAR HGB CONC 33 g/dL (33-37); MEAN CORPUSCULAR VOLUME 72.8 fL (80-94); MONOCYTES # (AUTO) 0.5 K/uL (0.8-1.0); MONOCYTES % (AUTO) 6.9 % (1.7-9.3); NEUTROPHILS # (AUTO) 6.3 K/uL (1.8-7.7); NEUTROPHILS % (AUTO) 80.6 % (42.2-75.2); PLATELET COUNT (AUTO) 550 K/uL (140-450); RED BLOOD CELL COUNT(AUTO) 3.16 MIL/uL (4.20-6.10); RED CELL DISTRIBUTION WIDTH 18.9 % (11.6-13.7); WHITE BLOOD COUNT (AUTO) 7.8 K/uL (4.8-10.8)
--- NOTE | 2019-08-01 07:28 | NUR ---
RECEIVED BEDSIDE REPORT FORM AVIATION SURVIVAL TECHNICIAN NURSE. PATIENT AWAKE AND RESTING ON BED COMFORTABLY AT THIS TIME. PATIENT IS AAOX4, SPEAKS TAMAZIGHT AND ABLE TO SPEAK AND UNDERSTAND SOME ALBANIAN. PATIENT IS ABLE TO FOLLOW COMMAND AND MAKE NEEDS KNOWN. RESPIRATION EVEN AND UNLABORED ON RA. DENIED PAIN, SOB, AND DIZZINESS. NO SIGNS OF DISTRESS NOTED. IV ON LFA 22G, CLEAN AND INTACT, INFUSING PER MD ORDER. WOUNDS ON SACRAL AND L HIP AREA NOTED, AND DRESSING CLEAN AND DRY. TAVAREZ IN PLACE AND DRAINING WITH GRAVITY, YELLOW. PATIENT IS BEDREST AND UNABLE TO AMBULATE. DISCUSSED PLAN OF CARE WITH PATIENT AND PATIENT SAID OK. TELE MONITOR ATTACHED. SAFETY MEASURES IN PLACE. BED IN LOW POSITION AND CALL LIGHT WITHIN REACH. INSTRUCTED PATIENT TO USE THE CALL LIGHT FOR ANY ASSISTANCE AND PATIENT WAS AWARE.
--- NOTE | 2019-08-01 07:50 | NUR ---
NOTIFIED DR BEJARANO ON CRITICAL MICRO LAB BLOOD GRAM NEGATIVE, AND DR BEJARANO WAS AWARE. NO ORDER RECEIVED AT THIS TIME.
[2019-08-01 08:00] VITALS: BP 104/63
[2019-08-01] MEDS: FAMOTIDINE 20 MG TAB PO SCH (08:13)
[2019-08-01] MEDS: DOCUSATE SODIUM 100 MG GELCAP PO SCH ×2 (08:13→20:32)
[2019-08-01] MEDS: FERROUS SULFATE 325 MG TABEC PO SCH ×2 (08:14→16:46)
[2019-08-01] MEDS: LACTOBACILLUS RHAMNOSUS GG 1 EACH CAP PO SCH (08:14)
[2019-08-01] MEDS: ASCORBIC ACID 500 MG TAB PO SCH ×2 (08:14→20:25)
[2019-08-01] MEDS: MULTIVITAMIN 1 TAB PO SCH (08:14)
--- NOTE | 2019-08-01 08:14 | NUR ---
ADMINISTERED MEDS PER MD ORDER, PATIENT TOLERATED WELL. MEDS EDUCATION PROVIDED TO PATIENT AND PATIENT VERBALIZED UNDERSTANDING. PATIENT AWAKE AND HAVING BREAKFAST AT THIS TIME. DENIED PAIN, SOB AND DIZZINESS. RESPIRATION EVEN AND UNLABORED ON RA. NO SIGNS OF DISTRESS NOTED. SAFETY MEASURES IN PLACE. TELE MONITOR ATTACHED. BED IN LOW POSITION AND CALL LIGHT WITHIN REACH. INSTRUCTED PATIENT TO USE THE CALL LIGHT FOR ANY ASSISTANCE AND PATIENT SAID OK.
--- NOTE | 2019-08-01 09:50 | NUR ---
PATIENT AWAKE AND WATCHING TV ON BED AT THIS TIME. DENIED PAIN, SOB AND DIZZINESS. NO SIGNS OF DISTRESS NOTED. TELE MONITOR ATTACHED. SAFETY MEASURES IN PLACE. BED IN LOW POSITION AND CALL LIGHT WITHIN REACH. WOUND BED ACTIVATED. INSTRUCTED PATIENT TO USE THE CALL LIGHT FOR ANY ASSISTANCE AND PATIENT WAS AWARE.
--- NOTE | 2019-08-01 10:50 | NUR ---
PATIENT HAVE 1 LARGE BM, YELLOW, SOLID AND SOFT. ASSISTED DIRECTOR OF PROCUREMENT TO CLEAN AND CHANGED PATIENT INTO CLEAN GOWN AND LINENS. REPOSITIONED PATIENT TO HIS LEFT SIDE AND OFF LOADED PRESSURE WITH PILLOWS ON HIS LEGS AND BACK, PATIENT TOLERATED WELL. SKIN BREAKDOWN EDUCATION PROVIDED TO PATIENT AND PATIENT VERBALIZED UNDERSTANDING. TAVAREZ IN PLACE AND DRAINING YELLOW URINE WITH GRAVITY. NO SIGNS OF DISTRESS NOTED. TELE MONITOR ATTACHED. SAFETY MEASURES IN PLACE. BED IN LOW POSITION AND CALL LIGHT WITHIN REACH. WOUND BED ACTIVATED. INSTRUCTED PATIENT TO USE THE CALL LIGHT FOR ANY ASSISTANCE AND PATIENT WAS AWARE.
--- NOTE | 2019-08-01 11:46 | NUR ---
ADMINISTERED MED PER MD ORDER VIA IVP, PATIENT TOLERATED WELL. PATIENT AWAKE AND TALKING TO DAUGHTER CHANA BY BEDSIDE. INSTRUCTED CHANA TO PUT ON PPE AT ALL TIME IN PATIENT'S ROOM DUE TO CONTACT ISOLATION, CHANA VERBALIZED UNDERSTANDING. VITAL SIGNS TAKEN. PATIENT DENIED PAIN, SOB, AND DIZZINESS. NO SIGNS OF DISTRESS NOTED. TELE MONITOR ATTACHED. SAFETY MEASURES IN PLACE. BED IN LOW POSITION AND CALL LIGHT WITHIN REACH. WOUND BED ACTIVATED. INSTRUCTED PATIENT AND DAUGHTER CHANA TO USE THE CALL LIGHT FOR ANY ASSISTANCE AND ALL AWARE.
[2019-08-01 12:00] VITALS: BP 100/61
[2019-08-01] MEDS ORDERED: MAG SULF 2000 MG/WATER PREMIX 50 ML IV SCH (12:45)
--- NOTE | 2019-08-01 13:15 | NUR ---
PATIENT AWAKE AND TALKING TO LAWANDA ZAYAS BY BEDSIDE. NO SIGNS OF DISTRESS NOTED. TELE MONITOR ATTACHED. SAFETY MEASURES IN PLACE. BED IN LOW POSITION AND CALL LIGHT WITHIN REACH. INSTRUCTED PATIENT TO USE THE CALL LIGHT FOR ANY ASSISTANCE AND PATIENT WAS AWARE.
--- NOTE | 2019-08-01 13:30 | NUR ---
ADMINISTERED MED VIA IVPB PER MD ORDER, PATIENT IS GETTING A BREATHING TREATMENT AT THIS TIME. DENIED PAIN, SOB, AND DIZZINESS. NO SIGNS OF DISTRESS NOTED. TELE MONITOR ATTACHED. SAFETY MEASURES IN PLACE. BED IN LOW POSITION AND CALL LIGHT WITHIN REACH. INSTRUCTED PATIENT TO USE THE CALL LIGHT FOR ANY ASSISTANCE AND PATIENT WAS AWARE.
--- NOTE | 2019-08-01 13:51 | NUR ---
WITH ASSIST FROM HEALTH COACH, PERFORMED WOUND CARE. CLEANSED LEFT HIP AND SACRAL WOUND WITH WOUND CARE SOLUTION. PAT DRY, APPLY THERAHONEY GEL TO LEFT HIP WOUND AND COVERED WITH COMPOSITE DRESSING. PACKED SACRAL WOUND WITH SILVER ALGINATE, THEN APPLIED HYDRAGUARD TO AROUND SLAVA WOUND SKIN COVERED WITH COMPOSITE DRESSING. PATIENT TOLERATED WELL. POSITIONED PATIENT TO HIS LEFT SIDE AND USED PILLOWS TO OFF LOADED PRESSURES FROM LEGS AND BACK. WOUND BED ACTIVATED. SAFETY MEASURES IN PLACE. BED IN LOW POSITION AND CALL LIGHT WITHIN REACH. TELE MONITOR ATTACHED. INSTRUCTED PATIENT TO USE THE CALL LIGHT FOR ANY ASSISTANCE AND PATIENT WAS AWARE.
--- NOTE | 2019-08-01 14:21 | NUR ---
ADMINISTERED MAGNESIUM VIA IV PER MD ORDER FOR LOW MG VALUES FROM AM LAB, PATIENT IS AWAKE AND WATCHING TV ON BED. DENIED PAIN, SOB, AND DIZZINESS. NO SIGNS OF DISTRESS NOTED. TELE MONITOR ATTACHED. SAFETY MEASURES IN PLACE. BED IN LOW POSITION AND CALL LIGHT WITHIN REACH. INSTRUCTED PATIENT TO USE THE CALL LIGHT FOR ANY ASSISTANCE AND PATIENT SAID OK.
[2019-08-01] MEDS ORDERED: POTASSIUM CHLORIDE 10 MEQ TABER PO SCH (15:30)
--- NOTE | 2019-08-01 15:31 | NUR ---
ASSISTED INSURANCE CLERK TO CLEAN AND REPOSITIONED PATIENT. PATIENT TOLERATED WELL. NO SIGNS OF DISTRESS NOTED. SAFETY MEASURES IN PLACE. TELE MONITOR ATTACHED. COLLECTED SACRAL WOUND CULTURE AND DELIVERED TO LAB. INSTRUCTED PATIENT TO USE THE CALL LIGHT FOR ANY ASSISTANCE AND PATIENT WAS AWARE.
--- NOTE | 2019-08-01 15:41 | NUR ---
ADMINISTERED K-DUR VIA PO PER MD ORDER, UNABLE TO SCAN DUE TO UNKNOWN DEANNA # AND KEYA ENTER, PATIENT TOLERATED WELL. MED EDUCATION PROVIDED TO PATIENT AND PATIENT SAID OK. PATIENT AWAKE AND RESTING ON BED AT THIS TIME. NO SIGNS OF DISTRESS NOTED. TELE MONITOR ATTACHED. SAFETY MEASURES IN PLACE. BED IN LOW POSITION AND CALL LIGHT WITHIN REACH. INSTRUCTED PATIENT TO USE THE CALL LIGHT FOR ANY ASSISTANCE AND PATIENT WAS AWARE.
[2019-08-01 16:00] VITALS: BP 113/68
--- NOTE | 2019-08-01 16:46 | NUR ---
ADMINISTERED FERROUS SULFATE 325MG VIA PO PER MD ORDER, PATIENT TOLERATED WELL. MED EDUCATION PROVIDED TO PATIENT AND PATIENT VERBALIZED UNDERSTANDING.. PATIENT AWAKE AND WATCHING TV AT THIS TIME. NO SIGNS OF DISTRESS NOTED. TELE MONITOR ATTACHED. SAFETY MEASURES IN PLACE. BED IN LOW POSITION AND CALL LIGHT WITHIN REACH. WOUND BED ACTIVATED. INSTRUCTED PATIENT TO USE THE CALL LIGHT FOR ANY ASSISTANCE AND PATIENT WAS AWARE.
--- NOTE | 2019-08-01 17:36 | NUR ---
PATIENT AWAKE AND WATCHING TV ON BED. DENIED PAIN, SOB AND DIZZINESS. RESPIRATION EVEN AND UNLABORED ON RA. NO SIGNS OF DISTRESS NOTED. TELE MONITOR ATTACHED. SAFETY MEASURES IN PLACE. BED IN LOW POSITION AND CALL LIGHT WITHIN REACH. WOUND BED ACTIVATED. INSTRUCTED PATIENT TO USE THE CALL LIGHT FOR ANY ASSISTANCE AND PATIENT WAS AWARE.
--- NOTE | 2019-08-01 18:02 | NUR ---
ADMINISTERED MED VIA IVPB PER MD ORDER, MD EDUCATION PROVIDED TO PATIENT AND PATIENT VERBALIZED UNDERSTANDING. PATIENT AWAKE AND EATING DINNER AT THIS TIME. NO SIGNS OF DISTRESS NOTED. TELE MONITOR ATTACHED. SAFETY MEASURES IN PLACE. BED IN LOW POSITION AND CALL LIGHT WITHIN REACH. WOUND BED ACTIVATED. INSTRUCTED PATIENT TO USE THE CALL LIGHT FOR ANY ASSISTANCE AND PATIENT WAS AWARE.
[2019-08-01] MEDS: SODIUM FERRIC GLUCONATE 125 MG in NACL 0.9% 100 ML IV SCH (18:37)
--- NOTE | 2019-08-01 18:37 | NUR ---
ADMINISTERED FERRIC GLUCONATE VIA IVPB PER MD ORDER, MED EDUCATION PROVIDED TO PATIENT AND DAUGHTER CHANA BY BEDSIDE. PATIENT AWAKE AND TALKING TO DAUGHTER AND GRANDDAUGHTER BY BEDSIDE. NO SIGNS OF DISTRESS NOTED. TELE MONITOR ATTACHED. SAFETY MEASURES IN PLACE. BED IN LOW POSITION AND CALL LIGHT WITHIN REACH. INSTRUCTED PATIENT TO USE THE CALL LIGHT FOR ANY ASSISTANCE AND PATIENT WAS AWARE.
--- NOTE | 2019-08-01 19:17 | NUR ---
ENDORSED PATIENT AT BEDSIDE TO VACUUM FILTER OPERATOR NURSE FOR CONTINUITY OF CARE. PATIENT IS AWAKE AND WATCHING TV ON BED AT THIS TIME. NO SIGNS OF DISTRESS NOTED. PATIENT IS IN STABLE CONDITION. TELE MONITOR ATTACHED. SAFETY MEASURES IN PLACE. BED IN LOW POSITION AND CALL LIGHT WITHIN REACH. WOUND BED ACTIVATED.
--- NOTE | 2019-08-01 19:30 | NUR ---
RECEIVED REPORT FROM AM SHIFT RN ANJUM, FOR PT'S CONTINUITY OF CARE. PT IS LYING DOWN, AAOX4, RECEIVING BREATHING TREATMENT, FAMILY MEMBERS AT BEDSIDE, DENIES ANY PAIN AT THIS TIME, IS ON EFFICIENCY MANAGER, HAS LEFT FOREARM/HAND 22G INFUSING WITH NS AT 60ML/HR. EXPLAINED TO PT AND FAMILY MEMBERS THE ASSISTANT SUPERINTENDENT ROUTINE, AND THEY VERBALIZED UNDERSTANDING. SAFETY MEASURES IN PLACE, AND CALL LIGHT IS WITHIN REACH. WILL MONITOR PT THROUGHOUT SHIFT.
[2019-08-01 20:00] VITALS: BP 109/64
[2019-08-01] MEDS: HYDROcodone/APAP 7.5/325 MG 1 TAB PO PRN (20:25)
--- NOTE | 2019-08-01 20:25 | NUR ---
PT HAD BM X 1. ASSISTED JEWEL STRIPPER IN CHANGING PT AND REPOSITIONING. CHANGED SACRAL/COCCYX PRESSURE INJURY DRESSING. PT C/O LOWER BACK PAIN 05/06. ADMINISTERED SCHEDULED PO AND IV ABX MEDICATIONS, AND PO PRN PAIN MEDICATION ORDERED. PT REFUSED DOCUSATE SODIUM PO. PT TOLERATED MEDICATIONS AND ACTIVITY WELL. WILL CONTINUE TO MONITOR PT.
--- NOTE | 2019-08-01 22:15 | NUR ---
MADE ROUNDS. PT IS LYING DOWN ASLEEP WITH NO SIGNS OF DISTRESS. WILL CONTINUE TO MONITOR PT.
[2019-08-02] VITALS: BP 102/61
--- NOTE | 2019-08-02 | NUR ---
VS CHECKED AND CHARTED. ADMINISTERED SCHEDULED IV ABX ORDERED. PT ASLEEP, WOKE UP AND DENIES ANY PAIN AT THIS TIME. WILL CONTINUE TO MONITOR PT.
--- NOTE | 2019-08-02 02:30 | NUR ---
PT LYING DOWN ASLEEP, WITH NO SIGNS OF DISTRESS. WILL CONTINUE TO MONITOR PT.
[2019-08-02 04:00] VITALS: BP 106/66
[2019-08-02] MEDS: metroNIDAZOLE 500 MG/NS PREMIX 100 ML IV SCH ×2 (04:03→12:51)
--- NOTE | 2019-08-02 04:03 | NUR ---
VS CHECKED AND CHARTED. ADMINISTERED SCHEDULED IV ABX ORDERED. PT IS AWAKE, DENIES ANY PAIN AT THIS TIME. PERFORMED TAVAREZ CATH CARE, EMPTIED OUT TAVAREZ BAG, PT TOLERATED IT WELL. WILL CONTINUE TO MONITOR PT.
[2019-08-02] MEDS: PIPERACILLIN/TAZOBACTAM 3.375 GM in DEXTROSE 5% 50 ML IV SCH ×2 (05:32→11:49)
--- NOTE | 2019-08-02 05:32 | NUR ---
ADMINISTERED SCHEDULED IV ABX ORDERED. PT AWAKE, WATCHING TV, DENIES ANY PAIN AT THIS TIME. PT STATES "HE'S OK" WHEN ASKED IF THERE'S ANYTHING HE NEEDS. WILL CONTINUE TO MONITOR PT.
--- NOTE | 2019-08-02 07:22 | NUR ---
RECEIVED BEDSIDE REPORT FORM FACILITY MANAGER HISTOLOGY NURSE. PATIENT AWAKE AND RESTING ON BED COMFORTABLY AT THIS TIME. PATIENT IS AAOX4, SPEAKS [place] AND ABLE TO SPEAK AND UNDERSTAND SOME [place]. PATIENT IS ABLE TO FOLLOW COMMAND AND MAKE NEEDS KNOWN. RESPIRATION EVEN AND UNLABORED ON RA. DENIED PAIN, SOB, AND DIZZINESS. NO SIGNS OF DISTRESS NOTED. IV ON LFA 22G, CLEAN AND INTACT, INFUSING PER MD ORDER. WOUNDS ON SACRAL AND L HIP AREA NOTED, AND DRESSING CLEAN AND DRY. TAVAREZ IN PLACE AND DRAINING WITH GRAVITY, YELLOW AND CLEAR. PATIENT IS BEDREST AND UNABLE TO AMBULATE. DISCUSSED PLAN OF CARE WITH PATIENT AND PATIENT SAID OK. TELE MONITOR ATTACHED. SAFETY MEASURES IN PLACE. BED IN LOW POSITION AND CALL LIGHT WITHIN REACH. WOUND BED ACTIVATED. INSTRUCTED PATIENT TO USE THE CALL LIGHT FOR ANY ASSISTANCE AND PATIENT WAS AWARE.
[2019-08-02] MEDS: ALBUTEROL SULFATE/IPRATROPIU 3 ML SOL IH SCH ×2 (07:32→13:37)
[2019-08-02 07:52] LABS: CARBON DIOXIDE 17.2 mmol/L (21-32); POTASSIUM 3.2 mmol/L (3.5-5.1)
[2019-08-02 08:00] VITALS: BP 111/71
[2019-08-02 08:04] LABS: BASOPHILS # (AUTO) 0.1 K/uL (0.00-0.22); BASOPHILS % (AUTO) 1.4 % (0.0-2.0); EOSINOPHILS # (AUTO) 0.2 K/uL (0-0.4); EOSINOPHILS % (AUTO) 2.4 % (0.0-4.0); HEMATOCRIT 21.7 % (36-52); HEMOGLOBIN 7.3 g/dL (12.0-18.0); LYMPHOCYTES % (AUTO) 15.8 % (20.5-51.1); MEAN CORPUSCULAR HEMOGLOBIN 25 pg (27-31); MEAN CORPUSCULAR HGB CONC 33 g/dL (33-37); MEAN CORPUSCULAR VOLUME 73.3 fL (80-94); MONOCYTES # (AUTO) 0.5 K/uL (0.8-1.0); MONOCYTES % (AUTO) 8.4 % (1.7-9.3); NEUTROPHILS # (AUTO) 4.6 K/uL (1.8-7.7); PLATELET COUNT (AUTO) 530 K/uL (140-450); RED BLOOD CELL COUNT(AUTO) 2.97 MIL/uL (4.20-6.10); RED CELL DISTRIBUTION WIDTH 18.9 % (11.6-13.7); WHITE BLOOD COUNT (AUTO) 6.5 K/uL (4.8-10.8)
[2019-08-02] MEDS: FAMOTIDINE 20 MG TAB PO SCH (08:15)
[2019-08-02] MEDS: MULTIVITAMIN 1 TAB PO SCH (08:15)
[2019-08-02] MEDS: DOCUSATE SODIUM 100 MG GELCAP PO SCH (08:16)
[2019-08-02] MEDS: FERROUS SULFATE 325 MG TABEC PO SCH (08:16)
[2019-08-02] MEDS: LACTOBACILLUS RHAMNOSUS GG 1 EACH CAP PO SCH (08:16)
[2019-08-02] MEDS: ASCORBIC ACID 500 MG TAB PO SCH (08:16)
[2019-08-02 08:17] LABS: MAGNESIUM 2.1 mg/dL (1.8-2.4); PHOSPHORUS 3.2 mg/dL (2.5-4.9)
[2019-08-02] MEDS: HYDRAGUARD CREAM TP SCH (08:17)
[2019-08-02] MEDS: ALGINATE DRESSING TP SCH (08:17)
[2019-08-02] MEDS: THERAHONEY GEL 42.5 GM TP SCH (08:17)
--- NOTE | 2019-08-02 08:17 | NUR ---
ADMINISTERED MEDS PER MD ORDER, PATIENT TOLERATED WELL. MEDS EDUCATION PROVIDED TO PATIENT AND PATIENT VERBALIZED UNDERSTANDING. PATIENT AWAKE AND WATCHING TV AT THIS TIME. DENIED PAIN, SOB AND DIZZINESS. RESPIRATION EVEN AND UNLABORED ON RA. NO SIGNS OF DISTRESS NOTED. SAFETY MEASURES IN PLACE. TELE MONITOR ATTACHED. BED IN LOW POSITION AND CALL LIGHT WITHIN REACH. WOUND BED ACTIVATED. INSTRUCTED PATIENT TO USE THE CALL LIGHT FOR ANY ASSISTANCE AND PATIENT WAS AWARE.
--- NOTE | 2019-08-02 09:57 | NUR ---
PATIENT AWAKE AND WATCHING TV ON BED AT THIS TIME. INFORMED PATIENT THAT HE WILL BE DISCHARGE TODAY AND PATIENT SAID " I CALL MY DAUGHTER." NO SIGNS OF DISTRESS NOTED. SAFETY MEASURES IN PLACE. BED IN LOW POSITION AND CALL LIGHT WITHIN REACH. WOUND BED ACTIVATED. INSTRUCTED PATIENT TO USE THE CALL LIGHT FOR ANY ASSISTANCE AND PATIENT WAS AWARE.
--- NOTE | 2019-08-02 10:10 | NUR ---
PATIENT STATED THAT " MY DAUGHTER GET OFF WORK AROUND 2 PM TODAY AND SHE WILL BE THE ONE TO PICK ME UP." INFORMED PATIENT THAT DISCHARGE DOCUMENT WILL BE PREPARE AND PATIENT WAS AWARE. PATIENT IS RESTING ON BED AT THIS TIME. NO SIGNS OF DISTRESS NOTED. SAFETY MEASURES IN PLACE. TELE MONITOR ATTACHED. BED IN LOW POSITION AND CALL LIGHT WITHIN REACH. INSTRUCTED PATIENT TO USE THE CALL LIGHT FOR ANY ASSISTANCE AND PATIENT WAS AWARE.
[2019-08-02] MEDS: NACL 0.9% 1,000 ML IV SCH (10:41)
--- NOTE | 2019-08-02 10:41 | NUR ---
PATIENT HAVE 1 LARGE BM, SOLID, YELLOW AND SOFT, ASSISTED COIN BOX COLLECTOR TO CHANGE AND CLEAN PATIENT. CHANGED ALL WOUND DRESSINGS, PATIENT TOLERATED WELL. WOUND CARE EDUCATION PROVIDED TO PATIENT AND PATIENT SAID OK. POSITIONED PATIENT TO HIS LEFT SIDE AND USED PILLOWS TO OFF LOADED PRESSURES FROM LEGS AND BACK. WOUND BED ACTIVATED. SAFETY MEASURES IN PLACE. BED IN LOW POSITION AND CALL LIGHT WITHIN REACH. TELE MONITOR ATTACHED. INSTRUCTED PATIENT TO USE THE CALL LIGHT FOR ANY ASSISTANCE AND PATIENT WAS AWARE.
[2019-08-02] MEDS ORDERED: POTASSIUM CHLORIDE 10 MEQ TABER PO SCH (11:30)
[2019-08-02] MEDS ORDERED: LEVO750T2 PO (11:42)
[2019-08-02] MEDS ORDERED: FER325 PO (11:43)
--- NOTE | 2019-08-02 11:49 | NUR ---
ADMINISTERED MEDS PER MD ORDER, PATIENT TOLERATED WELL. MEDS EDUCATION PROVIDED TO PATIENT AND PATIENT VERBALIZED UNDERSTANDING. PATIENT AWAKE AND WATCHING TV ON BED AT THIS TIME. DENIED PAIN, SOB AND DIZZINESS. RESPIRATION EVEN AND UNLABORED ON RA. NO SIGNS OF DISTRESS NOTED. SAFETY MEASURES IN PLACE. TELE MONITOR ATTACHED. BED IN LOW POSITION AND CALL LIGHT WITHIN REACH. INSTRUCTED PATIENT TO USE THE CALL LIGHT FOR ANY ASSISTANCE AND PATIENT WAS AWARE.
[2019-08-02 12:00] VITALS: BP 111/68
[2019-08-02] MEDS ORDERED: INFLUENZA VACCINE IM PRN (12:20)
[2019-08-02] MEDS ORDERED: [UNRECOGNIZED DRUG - OTHER] IM PRN (12:20)
[2019-08-02] MEDS ORDERED: PNEUMOCOCCAL VACCINE 23 MCG/0.5 ML VIAL IMVAC SCH (13:00)
--- NOTE | 2019-08-02 13:27 | NUR ---
ASSESSED PATIENT IF HE HAS ANY FOOD AND MEDICATION ALLERGY, PATIENT SAID HE HAS NO KNOWN ALLERGY. ADMINISTERED PNA VACCINE VIA IM R DELTOID PER MD ORDER, VACCINE EDUCATION PROVIDED AND PATIENT VERBALIZED OK, PATIENT TOLERATED WELL. SAFETY MEASURES IN PLACE. BED IN LOW POSITION AND CALL LIGHT WITHIN REACH. WOUND BED ACTIVATED. TELE MONITOR ATTACHED. INSTRUCTED PATIENT TO USE THE CALL LIGHT FOR ANY ASSISTANCE AND PATIENT WAS AWARE.
--- NOTE | 2019-08-02 14:01 | NUR ---
PATIENT AWAKE AND RESTING ON BED AT THIS TIME. DENIED PAIN, SOB, AND DIZZINESS. NO SIGNS OF DISTRESS NOTED. AWAITING FOR DAUGHTER CHANA TO ARRIVE FOR DISCHARGE. WOUND BED ACTIVATED. SAFETY MEASURES IN PLACE. BED IN LOW POSITION AND CALL LIGHT WITHIN REACH. TELE MONITOR ATTACHED. INSTRUCTED PATIENT TO USE THE CALL LIGHT FOR ANY ASSISTANCE AND PATIENT WAS AWARE.
--- NOTE | 2019-08-02 14:30 | NUR ---
PATIENT AWAKE AND RESTING ON BED AT THIS TIME. DENIED PAIN, SOB, AND DIZZINESS. RESPIRATION EVEN AND UNLABORED ON RA. NO SIGNS OF DISTRESS NOTED. AWAITING FOR CHANA TO ARRIVE TO DC. WOUND BED ACTIVATED. SAFETY MEASURES IN PLACE. BED IN LOW POSITION AND CALL LIGHT WITHIN REACH. TELE MONITOR ATTACHED. INSTRUCTED PATIENT TO USE THE CALL LIGHT FOR ANY ASSISTANCE AND PATIENT WAS AWARE.
--- NOTE | 2019-08-02 15:06 | NUR ---
PATIENT AWAKE AND WATCHING TV ON BED. PER PATIENT, " CHANA ON HER WAY AND WILL BE HERE IN 15 MINS." NO SIGNS OF DISTRESS NOTED. SAFETY MEASURES IN PLACE. BED IN LOW POSITION AND CALL LIGHT WITHIN REACH. TELE MONITOR ATTACHED. INSTRUCTED PATIENT TO USE THE CALL LIGHT FOR ANY ASSISTANCE AND PATIENT WAS AWARE.
--- NOTE | 2019-08-02 15:50 | NUR ---
ADMINISTERED FLU VACCINE VIA IM PER MD ORDER, PATIENT TOLERATED WELL. UNABLE TO SCAN AND KEYA ENTER, PHARMACIST WAS AWARE, VERIFIED WITH ANOTHER RN. VACCINE EDUCATION PROVIDED TO PATIENT AND DAUGHTER CHANA, BOTH VERBALIZED UNDERSTANDING.
--- NOTE | 2019-08-02 16:00 | NUR ---
PATIENT HAVE 1 BM, ASSISTED PURLER TO CLEAN AND CHANGED PATIENT. CHANGED WOUND DRESSING ON SACRAL AND PACKED WOUND INSTRUCTED BY WOUND CARE NOTE. PATIENT TOLERATED WELL. EDUCATED DAUGHTER CHANA ON HOW TO DO WOUND CARE AT HOME AND PROVIDED WITH WOUND CARE SUPPLIES, ANSWERED ALL CHANA'S QUESTIONS AND CHANA VERBALIZED UNDERSTANDING.
--- NOTE | 2019-08-02 16:15 | NUR ---
NOTIFIED DR BASS THAT PATIENT CAME WITH TAVAREZ. PER DR OMALLEY WILL CANCEL THE DC TAVAREZ ORDER AND KEEP TAVAREZ FOR DISCHARGE HOME. EDUCATED PATIENT AND PATIENT'S DAUGHTER ON TAVAREZ CARE, BOTH VERBALIZED UNDERSTANDING.
--- NOTE | 2019-08-02 16:25 | NUR ---
DISCHARGE INSTRUCTION PROVIDED TO PATIENT AND PATIENT'S DAUGHTER CHANA AT BEDSIDE. EDUCATED PATIENT AND CHANA ON MD FOLLOW UP, SEEK MEDICAL HELP IN CASE OF MEDICAL EMERGENCY, TAVAREZ CARE, WOUND CARE, MEDICATION REGIMEN AND SIDE EFFECTS. ANSWERED ALL PATIENT'S AND DAUGHTER CHANA'S QUESTIONS, BOTH VERBALIZED UNDERSTANDING. REMOVED IV AND IV CANNULA INTACT, NO BLEEDING AT IV SITE. REMOVED ALL ARM BANDS. PROVIDED WOUND CARE SUPPLIES. CHANA CHECKED ALL CABINETS AND TOOK ALL PATIENT'S BELONGINGS. PATIENT IS GOING TO DISCHARGE AT THIS TIME ACCOMPANY BY DAUGHTER CHANA. WHEELCHAIR PATIENT TO THE FRONT LOBBY. PATIENT IS IN STABLE CONDITION.
== END 2019-08-02 16:25 | disposition home or self-care (01) | DRG 710 ==
LOC: MED 12:49 → MTU 16:01
PROVIDERS: ADMIT General Practice; ATTEND General Practice
PROC: 30233N1 Transfusion of Nonautologous Red Blood Cells into Peripheral Vein, Percutaneous Approach (ICD-10-PCS; 2019-07-29)
PROC: 0QB10ZZ Excision of Sacrum, Open Approach (ICD-10-PCS; 2019-07-31)
PROC: 0QBS0ZZ Excision of Coccyx, Open Approach (ICD-10-PCS; principal; 2019-07-31 13:30)
PROC: 3E0234Z Introduction of Serum, Toxoid and Vaccine into Muscle, Percutaneous Approach (ICD-10-PCS; 2019-08-02)
DX: A41.9 Sepsis, unspecified organism (principal); E43 Unspecified severe protein-calorie malnutrition; G82.50 Quadriplegia, unspecified; I96 Gangrene, not elsewhere classified; L89.154 Pressure ulcer of sacral region, stage 4; J18.1 Lobar pneumonia, unspecified organism; N39.0 Urinary tract infection, site not specified; C79.51 Secondary malignant neoplasm of bone; E87.1 Hypo-osmolality and hyponatremia; E83.42 Hypomagnesemia; E83.39 Other disorders of phosphorus metabolism; C61 Malignant neoplasm of prostate; E87.6 Hypokalemia; D50.0 Iron deficiency anemia secondary to blood loss (chronic); M86.9 Osteomyelitis, unspecified; Z16.12 Extended spectrum beta lactamase (ESBL) resistance; B96.20 Unspecified Escherichia coli [E. coli] as the cause of diseases classified elsewhere; K92.2 Gastrointestinal hemorrhage, unspecified; Z68.20 Body mass index [BMI] 20.0-20.9, adult; Z99.3 Dependence on wheelchair; Z87.891 Personal history of nicotine dependence; Z93.3 Colostomy status; Z23 Encounter for immunization
CPT/HCPCS: 36415; 71045; 71260; 80048; 80053; 80305; 81001; 82607; 82728; 83036; 83540; 83605; 83735; 83880; 83930; 83935; 84100; 84154; 84300; 84439; 84443; 84484; 85025; 85045; 85610; 85730; 86886; 86900; 86901; 86920; 87040; 87070; 87075; 87081; 87086; 87186; 87205; 88305; 88311; 90732; 93005; 94640; 96365; 96366; 97161-GP; 99291; A4649; J0696; J1956; J2001; J2543; J2704; J2916; J3010; J3475; J3480; J3490; J7030; J7060; J7620; P9016; Q0092; Q9967

== ENCOUNTER 2019-11-15 10:59 | Emergency (ER) | payer MEDICAID ==
[~2019-11-15] VITALS: Ht 157.5 cm; Wt 52.2 kg
[~2019-11-15 10:59] MED LIST changes: -Acetaminophen/Hydrocodone Bi PO; +FER325 PO; +LEVO750T2 PO; +[UNRECOGNIZED DRUG - CODE] PO
[2019-11-15 11:11] VITALS: BP 99/66
--- NOTE | 2019-11-15 11:15 | NUR ---
54/M BIB DAUGHTER FOR TAVAREZ CATH INSERTION/REPLACEMENT. STATES PT'S TAVAREZ "FELL OUT" LAST NIGHT. NO COMPLAINTS. DENIES PAIN, DYSURIA, HEMATURIA, DISCHARGE, CLOUDY URINE, FEVERS. 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
--- NOTE | 2019-11-15 11:49 | NUR ---
# 16 FR Song catheter utilizing sterile technique. Immediate return of 100 ml HAZY YELLOW urine noted. Bedside drainage bag placed below level of bladder. Urine sample collected and sent to lab. Pt tolerated procedure WELL.
[2019-11-15 12:14] VITALS: BP 102/60
--- NOTE | 2019-11-15 12:14 | NUR ---
Patient discharged with v/s stable. Written and verbal after care instructions given and explained. Patient verbalized understanding. Patient w/c assisted to car by family. All questions addressed prior to discharge. Advised to follow up with PMD.
== END 2019-11-15 12:14 | disposition home or self-care (01) ==
LOC: MED 10:59
DX: Z49.01 Encounter for fitting and adjustment of extracorporeal dialysis catheter (principal); Z79.899 Other long term (current) drug therapy
CPT/HCPCS: 51702; 99284